=== PATIENT | female | born 1955 | race African-American/Black ===

== ENCOUNTER → 2016-03-09 | Day surgery (SDC) | payer OTHER ==
--- NOTE | 2016-03-10 14:36 | PATH ---
Cytology Non-Gynecological Report Patient Name: MARIANA MARCUS [facility]. Rec. #: [id number] /Age/Gender: 1955 (Age: 60) / F Account: [id number] Location: RADIOLOGY Taken: 03/09/2016 Received: 03/09/2016 Reported: 03/10/2016 Physicians: Joel Grande M.D. Specimen(s) Received RIGHT THYROID FNA Clinical History Right thyroid nodule 0.42 x 0.38 x 0.17 cm Final Diagnosis THYROID GLAND, RIGHT LOBE, US GUIDED FINE NEEDLE ASPIRATION BIOPSY: SATISFACTORY FOR EVALUATION. NO MALIGNANT CELLS IDENTIFIED. SCATTERED CLUSTERS OF BLAND APPEARING FOLLICULAR EPITHELIAL CELLS AND COLLOID MOST SUGGESTIVE OF NODULAR HYPERPLASIA (SEE COMMENT). Comment: This smears and cell block show scattered clusters of bland appearing follicular epithelial cells with few cells showing Hurthle cell (oncocytic) change and colloid. The findings are most suggestive of nodular hyperplasia (Benign follicular nodule, [place] Category II, benign). Imaging correlations and followup are suggested. Electronically Signed Jimmy Herrera M.D. Gross Description Received are four air dried smears, four smears in 95% alcohol, and 20 cc of bloody fluid in formalin. Four diff-quik stained slides, four Pap stained slides and one cell block are made.
== END | disposition home or self-care (01) ==
LOC: JRADIR 08:20
PROVIDERS: ATTEND Internal Medicine
PROC: 0G9H3ZX Drainage of Right Thyroid Gland Lobe, Percutaneous Approach, Diagnostic (ICD-10-PCS; principal; 2016-03-09)
PROC: BG44ZZZ Ultrasonography of Thyroid Gland (ICD-10-PCS; 2016-03-09)
DX: E04.1 Nontoxic single thyroid nodule (principal)
CPT/HCPCS: 76942; 88173; 88305-TC

== ENCOUNTER 2016-03-24 11:53 | Inpatient (IN) | payer OTHER ==
[2016-03-24] MEDS ORDERED: SODIUM CHLORIDE 1,000 ML IV STA ×2 (16:27→17:48)
--- NOTE | 2016-03-24 16:27 | PDOC ---
History of Present Illness <Quinton oNrton - Last Filed: 03/24/16 20:00> - General History Source: Patient, Old Records Exam Limitations: No Limitations - History of Present Illness Initial Comments: 03/24/16 16:41 The patient is a 60 year old female, with a significant past medical history of HTN and lupus (diagnosed in 2006; on Plaquenil), who presents to the emergency department with nausea, vomiting and intermittent abdominal pain for the past 3 days. The patient localizes her abdominal pain to the LLQ. She reports a couple of episodes of nonbloody vomiting over the past 3 days with her most recent episode this morning, thus prompting her to visit an ED for evaluation. The patient denies fever, chills, diarrhea, constipation, any changes in bowel movement or any dysuria. Allergies: None reported. Past Surgical History: Hysterectomy (1998); Colon Resection (2000) Social History: Non smoker. Denies alcohol or drug use. PCP: Dr. Eva Wiggins Urologist: Dr. Myla Huang Special Effects Designer: Dr. Barrera <Debra Pérez - Last Filed: 03/24/16 22:39> - General Chief Complaint: Pain Stated Complaint: ABD PAIN N/V Time Seen by Provider: 03/24/16 16:26 Past History - Past Medical History HTN: Yes Other medical history: LUPUS - Surgical History Abdominal Surgery: Yes (RESECTION TUMOR) - Psycho/Social/Smoking Cessation Hx Anxiety: No Suicidal Ideation: No Smoking History: Never smoked Have you smoked in the past 12 months: No Information on smoking cessation initiated: No Hx Alcohol Use: No Drug/Substance Use Hx: No Substance Use Type: None <Quinton Norton - Last Filed: 03/24/16 20:00> <Debra Pérez - Last Filed: 03/24/16 22:39> - Past Medical History Allergies/Adverse Reactions: Allergies Allergy/AdvReac Type Severity Reaction Status Date / Time No Known Allergies Allergy Verified 03/24/16 12:26 Home Medications: Ambulatory Orders Amlodipine Besylate [Norvasc -] 10 mg PO DAILY 03/31/13 Aspirin 81 mg PO DAILY 03/31/13 Hydroxychloroquine So4 [Plaquenil -] 200 mg PO DAILY tablet 07/10/13 Iron Ps Cmplx/Vit B12/FA [Ferrex 150 Forte Capsule] 1 each PO DAILY capsule Omeprazole/Sodium Bicarbonate [Zegerid 20mg (Rx)] 1 each PO DAILY capsule 07/10 Losartan/Hydrochlorothiazide [Losartan-Hctz 100-25 mg Tab] 1 each PO DAILY 03/24 Review of Systems - Review of Systems Able to Perform ROS?: Yes Comments:: 03/24/16 16:30 GENERAL/CONSTITUTIONAL: No fever or chills. No weakness. HEAD, EYES, EARS, NOSE AND THROAT: No change in vision. No ear pain or discharge. No sore throat. CARDIOVASCULAR: No chest pain or shortness of breath. RESPIRATORY: No cough, wheezing, or hemoptysis. GASTROINTESTINAL: +Nausea, vomiting, abdominal pain. No diarrhea or constipation. GENITOURINARY: No dysuria, frequency, or change in urination. MUSCULOSKELETAL: No joint or muscle swelling or pain. No neck or back pain. SKIN: No rash. NEUROLOGIC: No headache, vertigo, loss of consciousness, or change in strength/ sensation. ENDOCRINE: No increased thirst. No abnormal weight change. HEMATOLOGIC/LYMPHATIC: No anemia, easy bleeding, or history of blood clots. ALLERGIC/IMMUNOLOGIC: No hives or skin allergy. <Debra Pérez - Last Filed: 03/24/16 22:39> *Physical Exam - Vital Signs Last Vital Signs Temp Pulse Resp BP Pulse Ox 98.1 F 106 H 18 120/66 100 03/24/16 16:15 03/24/16 16:15 03/24/16 16:15 03/24/16 16:15 03/24/16 16:15 <Quinton Norton - Last Filed: 03/24/16 20:00> - Vital Signs Last Vital Signs Temp Pulse Resp BP Pulse Ox 98.1 F 106 H 18 120/66 100 03/24/16 16:15 03/24/16 16:15 03/24/16 16:15 03/24/16 16:15 03/24/16 16:15 - Physical Exam Comments: 03/24/16 16:30 GENERAL: Awake, alert, and fully oriented, in no acute distress. HEAD: No signs of trauma. EYES: PERRLA, EOMI, sclera anicteric, conjunctiva clear. ENT: Auricles normal inspection, hearing grossly normal, nares patent, oropharynx clear without exudates. Moist mucosa. NECK: Normal ROM, supple, no lymphadenopathy, JVD, or masses. LUNGS: Breath sounds equal, clear to auscultation bilaterally. No wheezes, and no crackles. HEART: Regular rate and rhythm, normal S1 and S2, no murmurs, rubs or gallops. ABDOMEN: LLQ tenderness on palpation. Soft, normoactive bowel sounds. No guarding, no rebound. No masses. EXTREMITIES: Normal range of motion, no edema. No clubbing or cyanosis. No cords , erythema, or tenderness. NEUROLOGICAL: Cranial nerves II through XII grossly intact. Normal speech, normal gait. SKIN: Warm, dry, normal turgor, no rashes or lesions noted. <Debra Pérez - Last Filed: 03/24/16 22:39> ED Treatment Course - LABORATORY CBC & Chemistry Diagram: 03/24/16 16:31 03/24/16 16:31 <Quinton Norton - Last Filed: 03/24/16 20:00> - LABORATORY CBC & Chemistry Diagram: 03/24/16 16:31 03/24/16 16:31 <Debra Pérez - Last Filed: 03/24/16 22:39> Progress Note - Progress Note Progress Note: Dr. Cordoba requested a NGT. Patient is refusing. Agrees to cornelius. SBO on CT. To be admitted. <Quinton Norton - Last Filed: 03/24/16 20:00> Medical Decision Making - Medical Decision Making 03/24/16 20:01 EXAM: CT ABDOMEN & PELVIS WITH CONTRAST Reviewed By: Dr. Veronica Hirsch IMPRESSION: Minimally dilated small bowel left upper and left lower quadrants with relatively decompressed distal small bowel and oral contrast into colon, probably partial small bowel obstruction. Surgical changes sigmoid colon. No colitis, free fluid or free air. Appendix not seen. Unremarkable pancreas, kidneys and gallbladder. Hysterectomy. Called patient's PCP, Dr. Eva Wiggins, at at 19:43. Referred to answering service, awaiting callback. Dr. Robles, covering for Dr. Wiggins, returned call at 19:45. Case discussed. Called Dr. Cordoba at at 19:48. Awaiting callback. Dr. Cordoba returned call at 19:50, case discussed. <Debra Pérez - Last Filed: 03/24/16 22:39> *DC/Admit/Observation/Transfer - Discharge Dispostion Admit: Yes <Quinton Norton - Last Filed: 03/24/16 20:00> - Attestations Scribe Attestion: 03/24/16 16:29 Documentation prepared by Debra Pérez, acting as medical hospital sales for Quinton Norton MD, /DO. <Debra Pérez - Last Filed: 03/24/16 22:39> Diagnosis at time of Disposition: Small bowel obstruction - Discharge Dispostion Condition at time of disposition: Stable - Referrals
[2016-03-24 16:46] LABS: URINE APPEARANCE CLEAR; URINE BILIRUBIN NEGATIVE (NEGATIVE); URINE BLOOD NEGATIVE (NEGATIVE); URINE COLOR YELLOW; URINE GLUCOSE (UA) NEGATIVE (NEGATIVE); URINE KETONE 1+ (NEGATIVE); URINE NITRITE NEGATIVE (NEGATIVE); URINE PROTEIN NEGATIVE (NEGATIVE); URINE UROBILINOGEN NEGATIVE E.U./dl (0.2-1.0)
[2016-03-24 16:49] LABS: URINE LEUK ESTERASE 1+ (NEGATIVE)
[2016-03-24 16:51] LABS: URINE MUCUS RARE; URINE RBC 3 /hpf (0-3); URINE WBC 4 /hpf (3-5)
[2016-03-24 16:54] LABS: BASOPHIL 1.7 % (0-2.0); EOSINOPHIL 0.7 % (0-4.5); MCH 22.6 pg (25.7-33.7); MCHC 30.9 g/dl (32.0-36.0); MEAN CELL VOLUME 72.9 fl (80-96); MEAN PLT VOLUME 8.3 fl (7.5-11.1); NEUTROPHILS 64.4 % (42.8-82.8); PLATELET COUNT 287 K/MM3 (134-434); WHITE BLOOD COUNT 8.3 K/mm3 (4.0-10.0)
[2016-03-24 17:12] LABS: INR 1.07 (0.82-1.09); PROTHROMBIN TIME (PATIENT) 11.8 SEC (9.98-11.88)
[2016-03-24 17:15] LABS: ACTIVATED PTT 36.8 SECONDS (26.9-34.4)
[2016-03-24 17:29] LABS: BILIRUBIN,TOTAL 0.5 mg/dL (0.2-1.0); CALCIUM 10.2 mg/dL (8.5-10.1); CREATININE 1.3 mg/dL (0.55-1.02); TOT PROT 8.5 g/dl (6.4-8.2)
[2016-03-24] MEDS ORDERED: morphine CARPU-JECT 4 MG/1 ML DISP.SYRIN IVPUSH ONE (18:04)
[2016-03-24] MEDS ORDERED: morphine CARPU-JECT 4 MG/1 ML DISP.SYRIN ONE (18:12)
[2016-03-24] MEDS ORDERED: morphine CARPU-JECT 2 MG/1 ML DISP.SYRIN IVPUSH PRN (21:43)
[2016-03-24] MEDS ORDERED: D5-1/2NS+20 MEQ KCL - 1,000 ML IV SCH (21:45)
[2016-03-25 02:42] VITALS: BMI 26.3
[2016-03-25 07:16] LABS: BASOPHIL 0.7 % (0-2.0); EOSINOPHIL 1.4 % (0-4.5); MCHC 31.3 g/dl (32.0-36.0); MEAN CELL VOLUME 73.5 fl (80-96); MEAN PLT VOLUME 8.2 fl (7.5-11.1); NEUTROPHILS 64.7 % (42.8-82.8); PLATELET COUNT 242 K/MM3 (134-434); RDW 13.9 % (11.6-15.6); WHITE BLOOD COUNT 5.3 K/mm3 (4.0-10.0)
[2016-03-25 07:38] LABS: ALBUMIN 3.5 g/dl (3.4-5.0); ANION GAP 9 (8-16); CALCIUM 8.6 mg/dL (8.5-10.1); CO2 25 mmol/L (21-32); GLUCOSE,RANDOM 107 mg/dL (74-106); MAGNESIUM 1.9 mg/dL (1.8-2.4)
[2016-03-25 07:42] LABS: ALK PHOS 83 U/L (45-117); BILIRUBIN,TOTAL 0.6 mg/dL (0.2-1.0); CREATININE 0.9 mg/dL (0.55-1.02); SGOT/AST 23 U/L (15-37); SGPT/ALT 13 U/L (12-78); TOT PROT 7.4 g/dl (6.4-8.2)
--- NOTE | 2016-03-25 08:55 | CONSULT ---
Consult Consult Specialty:: Surgery Reason for Consultation:: small bowel obstruction - History of Present Illness Chief Complaint: Abdominal pain History of Present Illness: The patient is a 60 year old female, with a significant past medical history of HTN and lupus (diagnosed in 2006; on Plaquenil), who presents to the emergency department with nausea, vomiting and intermittent abdominal pain for the past 3 days. The patient localizes her abdominal pain to the LLQ. She reports a couple of episodes of nonbloody vomiting over the past 3 days with her most recent episode this morning, thus prompting her to visit an ED for evaluation. The patient denies fever, chills, diarrhea, constipation, any changes in bowel movement or any dysuria. Patient refused NGT insertion. Currently feels better with passage of stool and flatus - History Source History Provided By: Patient Limitations to Obtaining History: No Limitations - Past Surgical History Past Surgical History: Yes: Colectomy, Hysterectomy (vaginal hysterectomy) - Alcohol/Substance Use Hx Alcohol Use: No - Smoking History Smoking history: Never smoked Have you smoked in the past 12 months: No Home Medications - Allergies Allergies/Adverse Reactions: Allergies Allergy/AdvReac Type Severity Reaction Status Date / Time No Known Allergies Allergy Verified 03/24/16 12:26 - Home Medications Home Medications: Ambulatory Orders Amlodipine Besylate [Norvasc -] 10 mg PO DAILY 03/31/13 Aspirin 81 mg PO DAILY 03/31/13 Hydroxychloroquine So4 [Plaquenil -] 200 mg PO DAILY tablet 07/10/13 Iron Ps Cmplx/Vit B12/FA [Ferrex 150 Forte Capsule] 1 each PO DAILY capsule Omeprazole/Sodium Bicarbonate [Zegerid 20mg (Rx)] 1 each PO DAILY capsule 07/10 Losartan/Hydrochlorothiazide [Losartan-Hctz 100-25 mg Tab] 1 each PO DAILY 03/24 Physical Exam Vital Signs: Vital Signs Temperature 98.8 F 03/25/16 06:42 Pulse Rate 86 03/25/16 06:42 Respiratory Rate 16 03/25/16 06:42 Blood Pressure 126/77 03/25/16 06:42 O2 Sat by Pulse Oximetry (%) 100 03/24/16 22:14 Eyes: Yes: Conjunctiva Clear HENT: Yes: Normocephalic Neck: Yes: Supple Cardiovascular: Yes: Regular Rate and Rhythm Respiratory: Yes: CTA Bilaterally Gastrointestinal: Yes: Soft, Abdomen, Obese, Tenderness (none) ...Rectal Exam: Yes: Deferred Labs: CBC, BMP 03/25/16 06:50 03/25/16 06:50 Imaging - Results X-ray: Report Reviewed, Image Reviewed Cat Scan: Report Reviewed, Image Reviewed Assessment/Plan Partial SBO Resolved May start clear liquids and advance as tolerate No surgical intervention necessary at this time
--- NOTE | 2016-03-25 10:48 | HP ---
Admitting History and Physical - Primary Care Physician PCP: Eva Wiggins - Admission Chief Complaint: abd pain History of Present Illness: The patient is a 60 year old female, with a significant past medical history of HTN and lupus (diagnosed in 2006; on Plaquenil), recto sigmoid surgery - 2000who presents to the emergency department with nausea, vomiting and intermittent abdominal pain for the past 3 days. The patient localizes her abdominal pain to the LLQ. She reports a couple of episodes of non bloody vomiting over the past 3 days with her most recent episode this morning, thus prompting her to visit an ED for evaluation. The patient denies fever, chills, diarrhea, constipation, any changes in bowel movement or any dysuria. Allergies: None reported. Past Surgical History: Hysterectomy (1998); Colon Resection (2000) Social History: Non smoker. Denies alcohol or drug use. PCP: Dr. Eva Wiggins Urologist: Dr. Myla Huang Fabric Worker Leader: Dr. Barrera pt found tp have small bowel obstruction. pt admitted/ npo/ fluids refused ng tube I had discussed case with er physician last night / orders were written. Pt seen/ examined today feels much better denies pain. having b movement denies n/v / abd pain today denies any urinary burning no fever/ chills. History Source: Patient Limitations to Obtaining History: No Limitations - Smoking History Smoking history: Never smoked Have you smoked in the past 12 months: No - Alcohol/Substance Use Hx Alcohol Use: No Home Medications - Allergies Allergies/Adverse Reactions: Allergies Allergy/AdvReac Type Severity Reaction Status Date / Time No Known Allergies Allergy Verified 03/24/16 12:26 - Home Medications Home Medications: Ambulatory Orders Amlodipine Besylate [Norvasc -] 10 mg PO DAILY 03/31/13 Aspirin 81 mg PO DAILY 03/31/13 Hydroxychloroquine So4 [Plaquenil -] 200 mg PO DAILY tablet 07/10/13 Iron Ps Cmplx/Vit B12/FA [Ferrex 150 Forte Capsule] 1 each PO DAILY capsule Omeprazole/Sodium Bicarbonate [Zegerid 20mg (Rx)] 1 each PO DAILY capsule 07/10 Losartan/Hydrochlorothiazide [Losartan-Hctz 100-25 mg Tab] 1 each PO DAILY 03/24 Family Disease History - Family Disease History Family History: Unremarkable Review of Systems Unable to obtain ROS, reason: see [facility] [place] Physical Examination Vital Signs: Vital Signs Temperature 98.5 F 03/25/16 09:00 Pulse Rate 83 03/25/16 09:00 Respiratory Rate 16 03/25/16 09:00 Blood Pressure 126/73 03/25/16 09:00 O2 Sat by Pulse Oximetry (%) 100 03/24/16 22:14 Constitutional: Yes: No Distress, Calm Eyes: Yes: Conjunctiva Clear HENT: Yes: WNL Neck: Yes: Supple Cardiovascular: Yes: Regular Rate and Rhythm Respiratory: Yes: CTA Bilaterally Gastrointestinal: Yes: Normal Bowel Sounds, Soft Edema: No Neurological: Yes: Alert Psychiatric: Yes: Alert Labs: CBC, BMP 03/25/16 06:50 03/25/16 06:50 Imaging - Results X-ray: Report Reviewed Cat Scan: Report Reviewed Problem List - Problems (1) Small bowel obstruction Code(s): K56.69 - OTHER INTESTINAL OBSTRUCTION (2) Lupus Code(s): M32.9 - SYSTEMIC LUPUS ERYTHEMATOSUS, UNSPECIFIED (3) Hypertension Code(s): I10 - ESSENTIAL (PRIMARY) HYPERTENSION Assessment/Plan better resolving sbo start on liquid diet and advance as tolerated ambulate decrease fluids discussed with Dr. Cordoba also today If better - Anticipate d/c by tomorrow Pt in agreement/ discussed with her.
[2016-03-25] MEDS: HEPARIN NA (PORCINE) 5,000 UNITS/ML 1ML VIAL SQ SCH ×2 (10:57→21:12)
[2016-03-25] MEDS: D5-1/2NS+20 MEQ KCL - 1,000 ML IV SCH ×2 (11:00→21:12)
[2016-03-26] MEDS ORDERED: PT OWN MED DRAWER 7, Y5N ONE (09:28)
[2016-03-26] MEDS: HEPARIN NA (PORCINE) 5,000 UNITS/ML 1ML VIAL SQ SCH (09:31)
[2016-03-26] MEDS ORDERED: HYDROXYCHLOROQUINE SO4 200 MG TABLET (FP) PO SCH (10:00)
--- NOTE | 2016-03-26 11:14 | DS ---
Physical Examination Vital Signs: Vital Signs Temperature 97.8 F 03/26/16 06:11 Pulse Rate 68 03/26/16 06:11 Respiratory Rate 16 03/26/16 06:11 Blood Pressure 138/65 03/26/16 06:11 O2 Sat by Pulse Oximetry (%) 100 03/25/16 21:00 Findings/Remarks: feels well no complains tolerating diet having bm denies pain Constitutional: Yes: No Distress Neck: Yes: Supple Cardiovascular: Yes: Regular Rate and Rhythm Respiratory: Yes: CTA Bilaterally Gastrointestinal: Yes: Normal Bowel Sounds, Soft Edema: No Labs: CBC, BMP 03/25/16 06:50 03/25/16 06:50 Discharge Summary Reason For Visit: SMALL BOWEL OBSTRUCTION Current Active Problems Hypertension (Acute) Lupus (Acute) Small bowel obstruction (Acute) Hospital Course: Admitted for sbo treated conservatively resolved will advance diet to solid today- if tolerates lunch will d/c today bp is ok will hold amlodipine for now discussed with pt pt in agreement. meds reviewed/ reconciled f/u in office one week with Dr. Wiggins Condition: Improved - Instructions Referrals: Eva Wiggins MD [Primary Care Provider] - Disposition: HOME - Home Medications Comprehensive Discharge Medication List: Ambulatory Orders Aspirin 81 mg PO DAILY 03/31/13 Hydroxychloroquine So4 [Plaquenil -] 200 mg PO DAILY tablet 07/10/13 Iron Ps Cmplx/Vit B12/FA [Ferrex 150 Forte Capsule] 1 each PO DAILY capsule Omeprazole/Sodium Bicarbonate [Zegerid 20mg (RX)] 1 each PO DAILY capsule 07/10 Losartan/Hydrochlorothiazide [Losartan-Hctz 100-25 mg Tab] 1 each PO DAILY 03/24
[2016-03-26 17:19] VITALS: BP 115/71; PULSE 70; TEMP 98.8
== END 2016-03-26 18:31 | disposition home or self-care (01) | DRG 390 ==
LOC: JER 11:53 → JERBED 19:54 → J8W 23:21
PROVIDERS: ADMIT Internal Medicine; ATTEND Internal Medicine
DX: K56.60 Unspecified intestinal obstruction (principal); M32.9 Systemic lupus erythematosus, unspecified; I10 Essential (primary) hypertension; R11.2 Nausea with vomiting, unspecified
CPT/HCPCS: 36415; 74020-TC; 74177-TC; 80053; 81003; 81015; 83605; 83735; 84703; 85025; 85610; 85651; 85730; 86850; 86900; 86901; 87086; 99285-25; Q9967

== ENCOUNTER 2019-02-05 21:39 | Emergency (ER) | payer OTHER ==
[2019-02-05 21:45] VITALS: BMI 25.2
--- NOTE | 2019-02-05 23:13 | PDOC ---
*Physical Exam - Vital Signs Last Vital Signs Temp Pulse Resp BP Pulse Ox 98 F 100 H 20 136/74 100 02/05/19 21:41 02/05/19 21:41 02/05/19 21:41 02/05/19 21:41 02/05/19 21:41 - Physical Exam 02/05/19 23:12 The patient was examined by [LETICIA Staley] under my direct supervision. I personally evaluated the patient. I concur with the above findings and the plan of care. ED Treatment Course - LABORATORY CBC & Chemistry Diagram: 02/06/19 01:00 02/06/19 01:00 Discharge - Discharge Information Problems reviewed: Yes - Follow up/Referral - Patient Discharge Instructions - Post Discharge Activity
--- NOTE | 2019-02-05 23:16 | PDOC ---
History of Present Illness - General Chief Complaint: Pain Stated Complaint: ABD PAIN Time Seen by Provider: 02/05/19 22:48 - History of Present Illness Initial Comments: 02/05/19 23:12 CHIEF COMPLAINT: abdominal pain HISTORY OF PRESENT ILLNESS: 63 yo F with hx of lupus, HTN, and SBO presents to ED with abdominal pain, nausea and vomiting x 3 days. Patient denies any fever but reports feeling chills for the past two days. Pain described as a sharp, stabbing pain to her epigastrum. Denies any diarrhea or urinary symptoms. Patient reports last bowel movement was this morning and was soft. Patient is followed by PCP Eva Wiggins and GI Dr. Barrera. No recent travel or sick contacts. PAST MEDICAL HISTORY: Denies past medical history FAMILY HISTORY: Denies SOCIAL HISTORY:Denies tobacco, alcohol, illicit drug use. SURGICAL HISTORY: Hysterectomy (1998); Colon Resection (2000) ALLERGIES: No known drug allergies REVIEW OF SYSTEMS General/Constitutional: Denies fever or chills. Denies weakness, weight change. HEENT: Denies change in vision. Denies ear pain or discharge. Denies sore throat. Cardiovascular: Denies chest pain or shortness of breath. Respiratory: Denies cough, wheezing, or hemoptysis. Gastrointestinal: Nausea and vomiting x 3 days. Denies diarrhea or constipation. Denies rectal bleeding. Genitourinary: Denies dysuria, frequency, or change in urination. Musculoskeletal: Denies joint or muscle swelling or pain. Denies neck or back pain. Skin and breasts: Denies rash or easy bruising. Neurologic: Denies headache, vertigo, loss of consciousness, or loss of sensation. Psychiatric: Denies depression or anxiety. PHYSICAL EXAM General Appearance: Well-appearing, appropriately dressed. No apparent distress. HEENT: EOMI, PERRLA, normal ENT inspection, normal voice, TMs normal, pharynx normal. No conjunctival pallor. No photophobia, scleral icterus. Neck: Supple. Trachea midline. No tenderness, rigidity, carotid bruit, stridor , lymphadenopathy, or thyromegaly. Respiratory/Chest: Lungs CTAB. No shortness of breath, chest tenderness, respiratory distress, accessory muscle use. No crackles, rales, rhonchi, stridor , wheezing, dullness Cardiovascular: RRR. S1, S2. No JVD, murmur, bradycardia, tachycardia. Vascular Pulses: Dorsalis-Pedis (R): 2+, Dorsalis-Pedis (L): 2+ Gastrointestinal/Abdominal: Mild epigastric tenderness. Normal bowel sounds. Abdomen soft, non-distended. No tenderness or rebound tenderness. No organomegaly, pulsatile mass, guarding, hernia, hepatomegaly, splenomegaly. Lymphatic: No adenopathy, tenderness. Musculoskeletal/Extremities: Normal inspection. FROM of all extremities, normal capillary refill. Pelvis Stable. No CVA tenderness. No tenderness to extremities, pedal edema, swelling, erythema or deformity. Integumentary: Appropriate color, dry, warm. No cyanosis, erythema, jaundice or rash Neurologic: dust collector attendant II-XII intact. Fully oriented, alert. Appropriate mood/affect. Motor strength 5/5. No appreciable EOM palsy, facial droop or sensory deficit. Past History - Past Medical History Allergies/Adverse Reactions: Allergies Allergy/AdvReac Type Severity Reaction Status Date / Time No Known Allergies Allergy Verified 02/06/19 02:55 Home Medications: Ambulatory Orders Aspirin 81 mg PO DAILY 03/31/13 Hydroxychloroquine So4 [Plaquenil -] 200 mg PO DAILY tablet 07/10/13 Losartan/Hydrochlorothiazide [Losartan-Hctz 100-25 mg Tab] 1 each PO DAILY 03/24 Ascorbic Acid [Vitamin C] 500 mg PO DAILY 02/06/19 Ergocalciferol [Vitamin D2] 50,000 unit PO WEEKLY 02/06/19 Ferric Citrate [Auryxia] 210 mg PO DAILY 02/06/19 Plecanatide [Trulance] 3 mg PO PRN PRN 02/06/19 HTN: Yes - Surgical History Abdominal Surgery: Yes (RESECTION TUMOR) - Psycho Social/Smoking Cessation Hx Smoking History: Never smoked Have you smoked in the past 12 months: No Hx Alcohol Use: No Drug/Substance Use Hx: No Substance Use Type: None *Physical Exam - Vital Signs Last Vital Signs Temp Pulse Resp BP Pulse Ox 98 F 100 H 20 136/74 100 02/05/19 21:41 02/05/19 21:41 02/05/19 21:41 02/05/19 21:41 02/05/19 21:41 ED Treatment Course - LABORATORY CBC & Chemistry Diagram: 02/06/19 01:00 02/06/19 01:00 Medical Decision Making - Medical Decision Making 02/05/19 23:18 63 yo F with hx of lupus and HTN presents to ED with abdominal pain, nausea and vomiting x 3 days. -labs, urine -ekg -CTAP 02/06/19 01:34 Case discussed in detail with oncoming emergency provider including history, physical exam and ancillary studies. In brief, this patient is being seen in the ED for a chief complaint of: N/V x 3 days, hx SBO I have completed the initial assessment interview note and have ordered the following labs: cbc, cmp, lipase, card profile, urine I have reviewed the following results: CBC, urine Pending results: ct Plan for disposition as follows: pending Patient has been signed out to resident MD Gonsalves. Discharge - Discharge Information Problems reviewed: Yes Clinical Impression/Diagnosis: Small bowel obstruction Condition: Guarded Disposition: TRANSFER ACUTE CARE/OTHER HOSP - Follow up/Referral - Patient Discharge Instructions - Post Discharge Activity
[2019-02-06 01:13] LABS: BASO % 0.5 % (0-2.0); EOS % 0.2 % (0-4.5); HEMATOCRIT 37.6 % (32.4-45.2); HEMOGLOBIN 11.7 GM/dL (10.7-15.3); LYMPH % 19.8 % (8-40); MCH 23.4 pg (25.7-33.7); MCHC 31.1 g/dl (32.0-36.0); MEAN CELL VOLUME 75.4 fl (80-96); MEAN PLT VOLUME 8.8 fl (7.5-11.1); MONO % 5.3 % (3.8-10.2); NEUT % 74.2 % (42.8-82.8); PLATELET COUNT 262 K/MM3 (134-434); RBC 4.98 M/mm3 (3.60-5.2); RDW 13.4 % (11.6-15.6); WHITE BLOOD COUNT 8.9 K/mm3 (4.0-10.0)
[2019-02-06 01:15] LABS: EPI CELLS 5.7 /HPF (0-5/HPF); HYALINE CASTS 29 /lpf (0-8); URINE APPEARANCE CLOUDY; URINE BACTERIA 4.3 /hpf (NEGATIVE); URINE BILIRUBIN NEGATIVE (NEGATIVE); URINE COLOR YELLOW; URINE GLUCOSE (UA) NEGATIVE (NEGATIVE); URINE KETONE 1+ (NEGATIVE); URINE LEUK ESTERASE TRACE (NEGATIVE); URINE NITRITE NEGATIVE (NEGATIVE); URINE PROTEIN NEGATIVE (NEGATIVE); URINE RBC 7 /hpf (0-4); URINE UROBILINOGEN 0.2 mg/dL (0.2-1.0); URINE WBC 11 /hpf (0-5)
[2019-02-06] MEDS ORDERED: ONDANSETRON *ODT* 4 MG TABLET SL ONE ×2 (01:33→04:10)
--- NOTE | 2019-02-06 01:33 | PDOC ---
*Physical Exam - Vital Signs Last Vital Signs Temp Pulse Resp BP Pulse Ox 98 F 100 H 20 136/74 100 02/05/19 21:41 02/05/19 21:41 02/05/19 21:41 02/05/19 21:41 02/05/19 21:41 ED Treatment Course - LABORATORY CBC & Chemistry Diagram: 02/06/19 01:00 02/06/19 01:00 - ADDITIONAL ORDERS Additional order review: Laboratory Results 02/06/19 01:00 Urine Color Yellow Urine Appearance Cloudy Urine pH 5.0 Ur Specific [place] 1.018 Urine Protein Negative Urine Glucose (UA) Negative Urine Ketones 1+ H Urine Blood Negative Urine Nitrite Negative Urine Bilirubin Negative Urine Urobilinogen 0.2 Ur Leukocyte Esterase Trace Urine WBC (Auto) 11 Urine RBC (Auto) 7 Urine Casts (Auto) 29 U Pathogenic Cast Auto None U Epithel Cells (Auto) 5.7 U Sm Round Cell (Auto) None Urine Bacteria (Auto) 4.3 02/06/19 01:00 RBC 4.98 MCV 75.4 L MCHC 31.1 L RDW 13.4 MPV 8.8 Neutrophils % 74.2 D Lymphocytes % 19.8 D Monocytes % 5.3 Eosinophils % 0.2 D Basophils % 0.5 Medical Decision Making - Medical Decision Making 02/06/19 02:16 FINDINGS: Lung bases are clear. The visualized cardiac chambers are normal size and configuration. Mild nodularity left adrenal gland could represent a neuroma. Normal unenhanced liver, gallbladder, pancreas, spleen, right adrenal and kidneys. There are dilated left pelvic small bowel loops measuring up to 3.3 cm with collapsed distal small bowel loops. Findings are consistent with a small bowel obstruction, possibly closed loop in nature. No abscess or free air. No colonic inflammation. Rectal anastomosis is noted. There is no aortic aneurysm. There is no significant retroperitoneal lymphadenopathy. There is no evidence of appendicitis, although the appendix is not clearly visualized. Status post hysterectomy. Urinary bladder is unremarkable. There is no pelvic free fluid. No discrete pelvic lymphadenopathy is identified. No surgeon gerontological nurse practitioner. Transfering to [facility], spokew to Dr. Mayorga who accepted the patient. Patient agreeable. Patient currently asymptomatic except for mild pain. Discharge - Discharge Information Problems reviewed: Yes Clinical Impression/Diagnosis: Small bowel obstruction Condition: Guarded Disposition: TRANSFER ACUTE CARE/OTHER HOSP - Follow up/Referral - Patient Discharge Instructions - Post Discharge Activity - Transfer to Acute Care Facility Receiving Facility Name: [facility] Accepting Physician:: Dr. Mayorga
[2019-02-06 01:36] LABS: ALBUMIN 4.3 g/dl (3.4-5.0); BILIRUBIN,TOTAL 0.6 mg/dL (0.2-1); BLOOD UREA NITROGEN 34.1 mg/dL (7-18); CREATININE 1.7 mg/dL (0.55-1.3); POTASSIUM 4.1 mmol/L (3.5-5.1); TOT PROT 9.1 g/dl (6.4-8.2)
[2019-02-06] MEDS ORDERED: ONDANSETRON *ODT* 4 MG TABLET ONE ×2 (01:38→04:11)
[2019-02-06 03:56] VITALS: BP 130/76; PULSE 99; TEMP 98.8
--- NOTE | 2019-02-06 10:28 | EKG ---
Test Reason : Blood Pressure : / mmHG Vent. Rate : 087 BPM Atrial Rate : 087 BPM P-R Int : 130 ms QRS Dur : 086 ms QT Int : 382 ms P-R-T Axes : 054 012 033 degrees QTc Int : 459 ms POOR DATA QUALITY, INTERPRETATION MAY BE ADVERSELY AFFECTED NORMAL SINUS RHYTHM NORMAL ECG WHEN COMPARED WITH ECG OF 31-MAR-2013 15:48, NO SIGNIFICANT CHANGE WAS FOUND Confirmed by BECKA SCOTT, PERLA ([id number]) on 02/06/2019 10:27:52 AM Referred By: Confirmed By:PERLA JOVEL MD
== END 2019-02-06 04:35 | disposition short-term general hospital (02) ==
LOC: JER 21:39
DX: K56.699 Other intestinal obstruction unspecified as to partial versus complete obstruction (principal); I10 Essential (primary) hypertension; M32.9 Systemic lupus erythematosus, unspecified
CPT/HCPCS: 36415; 74176-TC; 80053; 81003; 82550; 83690; 84484; 85025; 93005; 93010; 99285-25; Q0162

== ENCOUNTER 2023-09-11 09:29 | Inpatient (IN) | payer OTHER ==
[2023-09-11] MEDS ORDERED: FAMOTIDINE 20 MG/50 ML IVPB 20 MG/50 ML MG IVPB ONE (10:15)
[2023-09-11] MEDS ORDERED: ONDANSETRON 4 MG/2 ML VIAL ONE ×2 (10:15→13:22)
[2023-09-11 10:54] LABS: BASO % 0.5 % (0-2.0); EOS % 0.2 % (0-4.5); HEMATOCRIT 31.1 % (32.4-45.2); HEMOGLOBIN 9.8 GM/dL (10.7-15.3); LYMPH % 23.8 % (8-40); MCH 23.8 pg (25.7-33.7); MCHC 31.6 g/dl (32.0-36.0); MEAN CELL VOLUME 75.4 fl (80-96); MEAN PLT VOLUME 8.2 fl (7.5-11.1); MONO % 8.4 % (3.8-10.2); NEUT % 67.1 % (42.8-82.8); PLATELET COUNT 239 10^3/uL (134-434); RBC 4.13 M/mm3 (3.60-5.2); RDW 13.7 % (11.6-15.6); WHITE BLOOD COUNT 6.3 K/mm3 (4.0-10.0)
[2023-09-11] MEDS: ONDANSETRON 4 MG TABLET PO ONE (10:55)
[2023-09-11] MEDS: FAMOTIDINE 20 MG/50 ML IVPB 20 MG/50 ML MG IVPB ONE (10:55)
[2023-09-11] MEDS: SODIUM CHLORIDE 0.9% 500 ML INFUS.BAG IV ONE (10:55)
[2023-09-11] MEDS: ONDANSETRON 4 MG/2 ML VIAL IVPB ONE ×2 (10:55→13:27)
[2023-09-11 11:22] LABS: POTASSIUM 5.2 mmol/L (3.5-5.1)
[2023-09-11 11:24] LABS: ALBUMIN 3.9 g/dl (3.4-5.0); BLOOD UREA NITROGEN 47.6 mg/dL (7-18); CALCIUM 9.7 mg/dL (8.5-10.1)
[2023-09-11 11:27] LABS: CREATININE 1.6 mg/dL (0.55-1.3)
[2023-09-11 11:29] LABS: BILIRUBIN,TOTAL 0.6 mg/dL (0.2-1); TOT PROT 8.5 g/dl (6.4-8.2)
[2023-09-11 12:51] LABS: MAGNESIUM 1.8 mg/dL (1.8-2.4)
[2023-09-11 13:33] LABS: PH,URINE 5.5 (5.0-8.0); URINE APPEARANCE CLEAR; URINE BILIRUBIN NEGATIVE (NEGATIVE); URINE COLOR YELLOW; URINE GLUCOSE (UA) NEGATIVE (NEGATIVE); URINE KETONE 1+ (NEGATIVE); URINE LEUK ESTERASE NEGATIVE (NEGATIVE); URINE NITRITE NEGATIVE (NEGATIVE); URINE PROTEIN NEGATIVE (NEGATIVE); URINE UROBILINOGEN 0.2 mg/dL (0.2-1.0)
[2023-09-11 18:10] VITALS: BMI 22.2
[2023-09-11] MEDS: ACETAMINOPHEN 1000 MG/100 ML BAG IVPB PRN (19:16)
[2023-09-11] MEDS: DEXTROSE 5%-NORMAL SALINE 1,000 ML IV SCH (20:26)
[2023-09-11] MEDS: ONDANSETRON 4 MG/2 ML VIAL IVPUSH PRN (20:50)
[2023-09-12 09:52] LABS: BASO % 0.5 % (0-2.0); EOS % 1.5 % (0-4.5); HEMATOCRIT 27.5 % (32.4-45.2); HEMOGLOBIN 8.6 GM/dL (10.7-15.3); LYMPH % 21.1 % (8-40); MCHC 31.2 g/dl (32.0-36.0); MEAN CELL VOLUME 76.9 fl (80-96); MONO % 9.7 % (3.8-10.2); NEUT % 67.2 % (42.8-82.8); PLATELET COUNT 208 10^3/uL (134-434); RBC 3.58 M/mm3 (3.60-5.2); RDW 13.5 % (11.6-15.6); WHITE BLOOD COUNT 4.8 K/mm3 (4.0-10.0)
[2023-09-12 10:14] LABS: POTASSIUM 4.4 mmol/L (3.5-5.1)
[2023-09-12 10:21] LABS: CALCIUM 9.2 mg/dL (8.5-10.1)
[2023-09-12 10:22] LABS: BLOOD UREA NITROGEN 31.2 mg/dL (7-18)
[2023-09-12 10:24] LABS: ALBUMIN 3.3 g/dl (3.4-5.0)
[2023-09-12 10:27] LABS: CREATININE 1.3 mg/dL (0.55-1.3); TOT PROT 7.1 g/dl (6.4-8.2)
[2023-09-12 10:28] LABS: BILIRUBIN,TOTAL 0.5 mg/dL (0.2-1)
[2023-09-12] MEDS: PANTOPRAZOLE SODIUM 40 MG VIAL IVPUSH SCH (10:29)
[2023-09-12] MEDS ORDERED: cefOXitin SODIUM 2 GM VIAL (RESTRICTED TO ID) IVPB ONE (13:42)
[2023-09-12] MEDS ORDERED: HEPARIN NA (PORCINE) 5,000 UNITS/ML 1ML VIAL ONE (13:42)
[2023-09-12] MEDS ORDERED: BUPIVACAINE HCL/PF 0.25% (2.5MG/ML) 10 ML VIAL ONE (13:42)
[2023-09-12] MEDS ORDERED: MIDAZOLAM HCL 2 MG/2 ML SINGLE DOSE VIAL ONE (13:57)
[2023-09-12] MEDS ORDERED: PROPOFOL 20 ML ONE (13:57)
[2023-09-12] MEDS ORDERED: ROCURONIUM BROMIDE 50 MG/5 ML SYRINGE ONE (14:48)
[2023-09-12] MEDS: ceFAZolin SODIUM 1 GM VIAL IVPB ONE (14:50)
[2023-09-12] MEDS: BUPIVACAINE HCL/PF 0.25% (2.5MG/ML) 10 ML VIAL IJ ONE ×3 (14:55→16:23)
[2023-09-12] MEDS ORDERED: ACETAMINOPHEN INJECTION 100 ML IVPB ONE (15:13)
[2023-09-12] MEDS: ACETAMINOPHEN 1000 MG/100 ML BAG IVPB ONE (15:15)
[2023-09-12] MEDS ORDERED: NEOSTIGMINE METHYLSULFATE 0.5 MG/1 ML - 10 ML MDV ONE (16:41)
[2023-09-12] MEDS ORDERED: PROMETHAZINE HCL 25 MG/1 ML VIAL IVPB PRN (16:56)
[2023-09-12] MEDS ORDERED: LACTATED RINGERS SOLUTION 1,000 ML IV SCH (17:00)
[2023-09-12] MEDS: DEXTROSE 5%-NORMAL SALINE 1,000 ML IV SCH (22:10)
[2023-09-12] MEDS: ACETAMINOPHEN 1000 MG/100 ML BAG IVPB SCH (22:11)
[2023-09-12] MEDS: HEPARIN NA (PORCINE) 5,000 UNITS/ML 1ML VIAL SQ SCH (22:12)
[2023-09-13 10:26] LABS: BASO % 0.4 % (0-2.0); EOS % 0.1 % (0-4.5); HEMATOCRIT 28.1 % (32.4-45.2); HEMOGLOBIN 8.7 GM/dL (10.7-15.3); LYMPH % 16.1 % (8-40); MCH 23.8 pg (25.7-33.7); MEAN CELL VOLUME 76.7 fl (80-96); MEAN PLT VOLUME 9.5 fl (7.5-11.1); MONO % 8.4 % (3.8-10.2); PLATELET COUNT 232 10^3/uL (134-434); RBC 3.66 M/mm3 (3.60-5.2); RDW 13.4 % (11.6-15.6)
[2023-09-13 10:29] LABS: WHITE BLOOD COUNT 7.9 K/mm3 (4.0-10.0)
[2023-09-13 10:34] LABS: POTASSIUM 4.5 mmol/L (3.5-5.1)
[2023-09-13 10:43] LABS: CALCIUM 8.1 mg/dL (8.5-10.1)
[2023-09-13 10:44] LABS: MAGNESIUM 1.5 mg/dL (1.8-2.4)
[2023-09-13 10:46] LABS: ALBUMIN 3.2 g/dl (3.4-5.0)
[2023-09-13 10:47] LABS: CREATININE 1.5 mg/dL (0.55-1.3)
[2023-09-13 10:48] LABS: BILIRUBIN,TOTAL 0.6 mg/dL (0.2-1)
[2023-09-13 10:50] LABS: TOT PROT 7.2 g/dl (6.4-8.2)
[2023-09-13 10:59] LABS: PLATELET ESTIMATE ADEQUATE
[2023-09-13] MEDS: PANTOPRAZOLE SODIUM 40 MG VIAL IVPUSH SCH (11:00)
[2023-09-14] MEDS ORDERED: ACETAMINOPHEN 500 MG TABLET (FP) PO PRN (08:37)
[2023-09-14] MEDS ORDERED: IBUPROFEN 600 MG TABLET (FP) PO PRN (08:38)
[2023-09-14 10:35] LABS: BASO % 0.2 % (0-2.0); EOS % 1.8 % (0-4.5); HEMATOCRIT 28.3 % (32.4-45.2); HEMOGLOBIN 8.9 GM/dL (10.7-15.3); LYMPH % 22.5 % (8-40); MCH 23.9 pg (25.7-33.7); MCHC 31.4 g/dl (32.0-36.0); MEAN CELL VOLUME 76.2 fl (80-96); MONO % 6.1 % (3.8-10.2); NEUT % 69.4 % (42.8-82.8); PLATELET COUNT 230 10^3/uL (134-434); RBC 3.71 M/mm3 (3.60-5.2); RDW 14.2 % (11.6-15.6); WHITE BLOOD COUNT 5.9 K/mm3 (4.0-10.0)
[2023-09-14 11:00] LABS: POTASSIUM 3.8 mmol/L (3.5-5.1)
[2023-09-14 11:02] LABS: ALBUMIN 3.2 g/dl (3.4-5.0); CALCIUM 8.4 mg/dL (8.5-10.1)
[2023-09-14 11:03] LABS: BLOOD UREA NITROGEN 20.9 mg/dL (7-18)
[2023-09-14 11:05] LABS: CREATININE 1.3 mg/dL (0.55-1.3)
[2023-09-14 11:07] LABS: BILIRUBIN,TOTAL 0.4 mg/dL (0.2-1)
[2023-09-14] MEDS ORDERED: IBUPROFEN 400 MG TABLET (FP) PO PRN (11:14)
[2023-09-14] MEDS: ONDANSETRON 4 MG/2 ML VIAL IVPUSH PRN (11:36)
[2023-09-16 06:31] VITALS: BP 124/61; PULSE 68; RESP 18; TEMP 98.4
== END 2023-09-16 15:49 | disposition home or self-care (01) | DRG 337 ==
LOC: JER 09:29 → JERBED 13:57 → J8W 17:20
PROVIDERS: ADMIT Internal Medicine; ATTEND Internal Medicine
PROC: 0DNW4ZZ Release Peritoneum, Percutaneous Endoscopic Approach (ICD-10-PCS; 2023-09-12)
PROC: 0DNU4ZZ Release Omentum, Percutaneous Endoscopic Approach (ICD-10-PCS; 2023-09-12)
PROC: 0DN84ZZ Release Small Intestine, Percutaneous Endoscopic Approach (ICD-10-PCS; principal; 2023-09-12 15:00)
DX: K56.50 Intestinal adhesions [bands], unspecified as to partial versus complete obstruction (principal); M32.9 Systemic lupus erythematosus, unspecified; D64.9 Anemia, unspecified; I10 Essential (primary) hypertension; R11.2 Nausea with vomiting, unspecified
CPT/HCPCS: 0241U-QW; 36415; 74018-TC-FY; 74176-TC; 80053; 81003; 82962; 83690; 83735; 85025; 86850; 86900; 86901; 87086; 93005; 93010; 94760; 99285-25; J0131; J1644

== ENCOUNTER → 2023-12-12 | Day surgery (SDC) | payer OTHER | END | disposition home or self-care (01) | LOC: JRADUS-SUR 11:19 | PROVIDERS: ATTEND Internal Medicine | PROC: 07D63ZX Extraction of Left Axillary Lymphatic, Percutaneous Approach, Diagnostic (ICD-10-PCS; principal; 2023-12-12) | DX: R59.0 Localized enlarged lymph nodes (principal) | CPT/HCPCS: 19083; 76942-TC; 87899; 88305-TC; 88341-TC; 88342-TC; A4648 ==